=== PATIENT | female | born 1990 | race Caucasian/White ===

== ENCOUNTER 2025-08-16 12:55 | Emergency (ER) | payer OTHER, SELFPAY ==
--- NOTE | 2025-08-16 12:59 | ED_ITS ---
HPI - URI/Sore Throat General Chief Complaint: Upper Respiratory Infection Stated Complaint: Ear Pain/Sore Throat Time Seen by Provider: 08/16/25 12:58 Source: patient Mode of arrival: ambulatory Limitations: no limitations History of Present Illness HPI Narrative: Mable is a 35-year-old female patient presenting to the clinic today with complaints of left ear pain, runny nose, headache, and sore throat x1 day. She reports she has not taken any medications for her symptoms. Denies any chest pain or shortness of breath. Related Data Home Medications ?Medication ?Instructions ?Recorded ?Confirmed ?Last Taken ?Type clonazepam 0.5 mg tablet 0.5 mg PO Q12H 08/16/25 12/05/13 Unknown History cyclobenzaprine 10 mg tablet 10 mg PO Q12H 08/16/25 Unknown History Allergies Allergy/AdvReac Type Severity Reaction Status Date / Time amoxicillin (From Amoxil) Allergy Mild Itching Verified 08/16/25 13:04 clindamycin Allergy Mild short of Verified 08/16/25 13:04 breaTH diphenhydramine (From Allergy Mild Itching Verified 08/16/25 13:04 Benadryl) Review of Systems Review of Systems: Pertinent positives per HPI. Patient denies any fever, chills, rash, visual changes, dizziness, shortness of breath, chest pain, palpitations, nausea, vomiting, diarrhea, constipation, abdominal pain, or any urinary issues. PMFSH Comments At the time of my signature, I reviewed and agree with the nursing past medical, surgical, social, and family history. There is no relevant family history pertinent to the patient complaint. Exam Narrative: General: Well-developed, well nourished, in no apparent distress Head: Normocephalic, atraumatic Eyes: Pupils equally round and reactive to light bilaterally, EOM intact, sclera and conjunctive clear, no discharge, lids normal Ears: TMs intact and clear, ear canals clear, no drainage, grossly hearing normal. Nose: Nares patent, clear nasal discharge, mild inflammation, no sinus tenderness. Mouth: Oral pharynx red without lesions or masses, good dentition, MMM. Postnasal drip Neck: Supple, trachea midline, no enlargement of anterior or posterior cervical nodes, no thyroid masses or goiter palpable. Cardio: Regular rate and rhythm, s1 and s2 normal, no murmur appreciated. Resp: Clear to auscultation bilaterally, no rhonchi, rales, wheezing or rubs Course Course Level of Care: Express Care Visit Vital Signs Vital signs: Vital Signs Temperature 36.5 C 08/16/25 13:09 Pulse Rate 112 H 08/16/25 13:09 Respiratory Rate 18 08/16/25 13:09 Blood Pressure 105/74 08/16/25 13:09 Pulse Oximetry 98 08/16/25 13:09 Oxygen Delivery Room Air 08/16/25 13:09 Temperature 36.5 C 08/16/25 13:09 Pulse Rate 112 H 08/16/25 13:09 Respiratory Rate 18 08/16/25 13:09 Blood Pressure 105/74 08/16/25 13:09 Pulse Oximetry 98 08/16/25 13:09 Oxygen Delivery Room Air 08/16/25 13:09 MDM MDM Narrative Medical decision making narrative: At the time of visit patient is resting comfortably on the exam table. Patient appears to be nontoxic. Complaints of left ear pain, runny nose, headache, and sore throat x1 day. She reports she has not taken any medications for her symptoms. Denies any chest pain or shortness of breath. On exam patient has bilateral TMs intact and clear, clear nasal drainage, mild anterior turbinate inflammation, oral pharynx mildly red, tonsils surgically absent, no cervical lymphadenopathy, heart rates regular rate and rhythm, lung sounds are clear. COVID, influenza, and strep test were ordered. Labs: COVID, influenza, and strep test were performed. Strep was negative. We will send strep for culture. Plan: I suspect patient has URI/pharyngitis/viral syndrome. Supportive measures were discussed with the patient and they voiced understanding discharge instructions and agrees to treatment plan. Return precautions reviewed Differential Diagnosis Differential Diagnosis: Differential diagnostic considerations for upper respiratory infection include upper respiratory infection, croup, otitis media, sinusitis, viral infection, bronchitis, influenza, pharyngitis, strep, uvulitis. Lab Data Labs: Lab Results 08/16/25 08/16/25 Range/Units 13:23 13:34 POC Influenza A Ag Negative (Negative) POC Influenza B Ag Negative (Negative) POC SARS CoV-2 Ag Negative (Negative) POC Grp A Strep Screen Negative (Negative) Discharge Plan Discharge Clinical Impression: Viral infection Upper respiratory infection Qualifiers: URI type: unspecified URI Qualified Code(s): J06.9 - Acute upper respiratory infection, unspecified Pharyngitis Qualifiers: Pharyngitis/tonsillitis etiology: unspecified etiology Qualified Code(s): J02.9 - Acute pharyngitis, unspecified Patient Disposition: Home Condition: Stable Instructions: Antibiotic Form, Pharyngitis (ED), Viral Syndrome (ED), Cold Symptoms (ED) Additional Instructions: Strep, COVID, and influenza testing was all negative in the clinic today. We will send strep for culture if this comes back positive we will contact you and place you on antibiotics at that time. Increase fluids and stay well hydrated May take Tylenol or motrin as directed on bottle for pain/fever May use Flonase 1 spray in each nare daily May take OTC antihistamines such as Zyrtec or Claritin daily as directed on bottle May apply Vicks vapor rub to chest to open sinuses Sinus rinses for congestion Cepacol spray, cough drops, throat lozenges, warm tea with honey/lemon, gargle salt water to soothe throat BRAT diet for diarrhea Clear liquids x 24 hours then advance as tolerated for nausea/vomiting Go to the ED if you develop a worsening in your condition- high fever not controlled by Tylenol or Motrin, dehydration, weakness, lethargy, shortness of breath, or chest pain. Follow up with your PCP in 3-5 days if symptoms persist. Patient Language: [place] Prescriptions: No Action clonazepam 0.5 mg tablet 0.5 mg PO Q12H cyclobenzaprine 10 mg tablet 10 mg PO Q12H Follow-up/Referrals: UNKNOWN,DOCTOR [Non-Staff] Time of Disposition: 13:33 Quality NIHSS Nursing Documentation ED NIHSS nursing documentation: reviewed/agree
[2025-08-16 13:09] VITALS: BP 105/74; PULSE 112; RESP 18; TEMP 36.5; O2SAT 98
[2025-08-16 13:25] LABS: EDSTREPNEGPOS1 Negative (Negative)
[2025-08-16 13:35] LABS: EDCOVIDSCREEN Negative (Negative)
[2025-08-16 13:36] LABS: EDINFLUASCREEN Negative (Negative); EDINFLUBSCREEN Negative (Negative)
== END 2025-08-16 13:36 | disposition home or self-care (01) ==
PROVIDERS: Emergency Provider Nurse Practitioner Family; PCP Family Medicine
DX: B34.9 Viral infection, unspecified (principal); J02.9 Acute pharyngitis, unspecified; Z20.822 Contact with and (suspected) exposure to COVID-19
CPT/HCPCS: 87081; 87426; 87804; 87880; 99213; G0463